=== PATIENT | male | born 1970 | race Two or more races ===

== ENCOUNTER 2020-08-12 07:57 | Inpatient (IN) | payer OTHER ==
[2020-08-12 08:03] VITALS: BMI 20.1
[2020-08-12] MEDS ORDERED: SODIUM CHLORIDE 1,000 ML IV STA (09:22)
[2020-08-12] MEDS ORDERED: LORazepam 2 MG/ML SDV VIAL IVPUSH ONE ×5 (09:22→19:04)
[2020-08-12] MEDS ORDERED: LORazepam 2 MG/ML SDV VIAL ONE ×5 (09:37→17:04)
[2020-08-12] MEDS ORDERED: ACETAMINOPHEN 1000 MG/100 ML VIAL (NON FORMULARY) IVPB ONE (09:40)
[2020-08-12 10:05] LABS: BASO % 1.1 % (0-2.0); EOS % 0.3 % (0-4.5); HEMATOCRIT 42.1 % (35.4-49); LYMPH % 20.1 % (8-40); MCHC 35.7 g/dl (32.0-35.9); MEAN CELL VOLUME 92.4 fl (80-96); MEAN PLT VOLUME 7.4 fl (7.5-11.1); MONO % 10.5 % (3.8-10.2); PLATELET COUNT 148 K/MM3 (134-434); RBC 4.55 M/mm3 (4.00-5.60); RDW 17.5 % (11.9-15.9); WHITE BLOOD COUNT 4.6 K/mm3 (4.0-10.0)
[2020-08-12 10:11] LABS: CHLORIDE 97 mmol/L (98-107); SODIUM 135 mmol/L (136-145)
[2020-08-12 10:14] LABS: CALCIUM 8.7 mg/dL (8.5-10.1); GLUCOSE,RANDOM 245 mg/dL (74-106); INR 1.03 (0.83-1.09); PROTHROMBIN TIME (PATIENT) 12.4 SEC (9.7-13.0)
[2020-08-12 10:15] LABS: ALBUMIN 3.6 g/dl (3.4-5.0); ANION GAP 13 MMOL/L (8-16); CO2 25 mmol/L (21-32); MAGNESIUM 1.8 mg/dL (1.8-2.4)
[2020-08-12 10:16] LABS: ACTIVATED PTT 30.8 SECONDS (25.2-36.5); LIPASE 549 U/L (73-393)
[2020-08-12 10:17] LABS: CREATININE 0.5 mg/dL (0.55-1.3); SGOT/AST 227 U/L (15-37); SGPT/ALT 253 U/L (13-61)
[2020-08-12 10:19] LABS: BILIRUBIN,TOTAL 1.5 mg/dL (0.2-1); TOT PROT 7.7 g/dl (6.4-8.2)
[2020-08-12 10:20] LABS: ALK PHOS 160 U/L (45-117)
[2020-08-12 11:04] LABS: BLOOD UREA NITROGEN 2.2 mg/dL (7-18)
[2020-08-12 12:03] LABS: ALBUMIN 3.2 g/dl (3.4-5.0); CALCIUM 8.2 mg/dL (8.5-10.1); MAGNESIUM 1.6 mg/dL (1.8-2.4)
[2020-08-12 12:05] LABS: PHOSPHOROUS 2.8 mg/dL (2.5-4.9)
[2020-08-12] MEDS ORDERED: MAGNESIUM SULF 50% (8.12 MEQ/2 ML-1 GM VIAL) IVPB ONE (12:05)
[2020-08-12 12:06] LABS: BILIRUBIN,DIRECT 0.8 mg/dL (0.0-0.2); CREATININE 0.5 mg/dL (0.55-1.3)
[2020-08-12 12:07] LABS: BILIRUBIN,TOTAL 1.4 mg/dL (0.2-1); TOT PROT 6.9 g/dl (6.4-8.2)
[2020-08-12] MEDS ORDERED: MAGNESIUM 1GM/D5W - 1 GM/100 ML IVPB IVPB ONE (12:08)
[2020-08-12 12:14] LABS: EPI CELLS 0 /uL (0-25.1); HYALINE CASTS 0 /uL (0-3.1); PH,URINE 6.5 (5.0-8.0); URINE APPEARANCE CLEAR; URINE BACTERIA 9 /uL (0-1359); URINE BILIRUBIN NEGATIVE (NEGATIVE); URINE COLOR YELLOW; URINE GLUCOSE (UA) 3+ (NEGATIVE); URINE KETONE TRACE (NEGATIVE); URINE LEUK ESTERASE NEGATIVE (NEGATIVE); URINE NITRITE NEGATIVE (NEGATIVE); URINE PROTEIN NEGATIVE (NEGATIVE); URINE RBC 2 /uL (0-23.9); URINE UROBILINOGEN 0.2 mg/dL (0.2-1.0); URINE WBC 1 /uL (0-25.8)
[2020-08-12] MEDS ORDERED: KETOROLAC TROMETHAMINE 15 MG/ML VIAL IVPUSH ONE (13:45)
[2020-08-12] MEDS ORDERED: KETOROLAC TROMETHAMINE 15 MG/ML VIAL ONE (13:47)
[2020-08-12] MEDS ORDERED: FOLIC ACID INJECTION - 1 MG, THIAMINE HCL 100 MG, MULTIVIT INJECTION ADULT 10 ML in SOD... IVPB ONE (14:37)
[2020-08-12] MEDS ORDERED: LORazepam 1 MG TABLET PO PRN (16:27)
[2020-08-12] MEDS ORDERED: SODIUM CHLORIDE 1,000 ML IV SCH (16:30)
[2020-08-12] MEDS ORDERED: THIAMINE HCL 200 MG/2 ML VIAL ONE (17:04)
[2020-08-12] MEDS: LORazepam 1 MG TABLET PO SCH ×3 (17:09→23:20)
[2020-08-12] MEDS: THIAMINE HCL 200 MG/2 ML VIAL IVPB SCH (17:09)
[2020-08-12] MEDS ORDERED: PANTOPRAZOLE SODIUM 40 MG VIAL ONE (18:23)
[2020-08-12] MEDS: PANTOPRAZOLE SODIUM 40 MG VIAL IVPUSH SCH (18:23)
[2020-08-12 18:24] LABS: URINE BARBITURATES NEGATIVE ng/ml (CUTOFF=200); URINE BENZODIAZEPINES NEGATIVE ng/ml (CUTOFF=200)
[2020-08-12 18:25] LABS: COCAINE, UR NEGATIVE ng/ml (CUTOFF=300); METHADONE, UR NEGATIVE ng/ml (CUTOFF=300); OPIATES, URI NEGATIVE ng/ml (CUTOFF=300); PHENCYCLIDINE,URINE NEGATIVE ng/ml (CUTOFF=25)
[2020-08-12 18:34] LABS: URINE AMPHETAMINES NEGATIVE ng/ml (CUTOFF=500)
[2020-08-12] MEDS ORDERED: LORazepam 2 MG/ML SDV VIAL IVPUSH PRN (19:04)
[2020-08-12] MEDS ORDERED: RAPID SEQUENCE INTUBATION KIT NR ONE (19:20)
[2020-08-12] MEDS ORDERED: diazePAM CARPU-JECT 10 MG/2 ML DISP.SYRIN IVPUSH ONE (19:23)
[2020-08-12] MEDS ORDERED: diazePAM CARPU-JECT 10 MG/2 ML DISP.SYRIN ONE (19:23)
[2020-08-12] MEDS ORDERED: LACTULOSE 20 GM/30 ML UDC (FOR RECTAL USE ONLY) PR ONE (19:25)
[2020-08-12] MEDS ORDERED: LACTULOSE 20 GM/30 ML UDC (FOR ORAL USE ONLY) PO ONE (19:25)
[2020-08-12] MEDS ORDERED: MIDAZOLAM HCL 2 MG/2 ML SINGLE DOSE VIAL ONE ×2 (19:32→21:47)
[2020-08-12] MEDS ORDERED: PROPOFOL 1,000,000 MCG/100 ML VIAL ONE (19:34)
[2020-08-12] MEDS ORDERED: ROCURONIUM BROMIDE 100 MG/10 ML VIAL ONE (19:48)
[2020-08-12] MEDS ORDERED: ROCURONIUM BROMIDE 50 MG/5 ML VIAL IV ONE ×3 (21:13→23:56)
[2020-08-12] MEDS ORDERED: ETOMIDATE 40 MG/20 ML VIAL IVPUSH ONE (21:13)
[2020-08-12] MEDS ORDERED: PROPOFOL 1,000,000 MCG/100 ML VIAL IVPB SCH (21:45)
[2020-08-12] MEDS ORDERED: MIDAZOLAM HCL 5 MG/1 ML Single Dose Vial IVPUSH ONE (21:47)
[2020-08-12] MEDS ORDERED: MIDAZOLAM 100 MG/100 ML MG IVPB ONE (21:58)
[2020-08-12] MEDS ORDERED: MIDAZOLAM IN 0.9 % SOD.CHLORID 100 MG/100 ML PLAST..BAG IVPB SCH (22:00)
[2020-08-12] MEDS: INSULIN SLIDING SCALE (NOVOLOG) 1 VIAL SQ SCH (22:13)
[2020-08-12] MEDS ORDERED: fentaNYL CITRATE 250 MCG/5 ML VIAL ONE (23:05)
[2020-08-12] MEDS: FENTANYL IVPB 500 MCG/100 ML BAG IVPB SCH (23:19)
[2020-08-12] MEDS ORDERED: PHENobarbital SODIUM 65 MG/1 ML VIAL IVPUSH ONE ×2 (23:36→23:51)
[2020-08-12] MEDS ORDERED: VECURONIUM BROMIDE 100 MG/100 ML BAG IVPB SCH (23:45)
[2020-08-13 06:36] LABS: BASO % 0.5 % (0-2.0); EOS % 0.1 % (0-4.5); HEMATOCRIT 38.1 % (35.4-49); HEMOGLOBIN 13.3 GM/dL (11.7-16.9); LYMPH % 7.5 % (8-40); MCH 32.9 pg (25.7-33.7); MCHC 34.8 g/dl (32.0-35.9); MEAN CELL VOLUME 94.5 fl (80-96); MEAN PLT VOLUME 7.2 fl (7.5-11.1); MONO % 9.4 % (3.8-10.2); NEUT % 82.5 % (42.8-82.8); PLATELET COUNT 120 K/MM3 (134-434); RBC 4.03 M/mm3 (4.00-5.60); RDW 17.4 % (11.9-15.9)
[2020-08-13 07:09] LABS: CALCIUM 7.7 mg/dL (8.5-10.1)
[2020-08-13 07:10] LABS: BLOOD UREA NITROGEN 7.9 mg/dL (7-18); MAGNESIUM 1.7 mg/dL (1.8-2.4)
[2020-08-13 07:12] LABS: CREATININE 0.6 mg/dL (0.55-1.3)
[2020-08-13 07:13] LABS: BILIRUBIN,TOTAL 2.5 mg/dL (0.2-1); PHOSPHOROUS 3.1 mg/dL (2.5-4.9); TOT PROT 6.7 g/dl (6.4-8.2)
[2020-08-13] MEDS ORDERED: MIDAZOLAM 100 MG/100 ML MG IVPB ONE (07:47)
[2020-08-13] MEDS ORDERED: FENTANYL NS IVPB 500 MCG/100 ML BAG IVPB ONE (07:47)
[2020-08-13] MEDS ORDERED: PROPOFOL 1,000,000 MCG/100 ML VIAL ONE (07:47)
[2020-08-13] MEDS: FENTANYL IVPB 500 MCG/100 ML BAG IVPB SCH (08:24)
[2020-08-13] MEDS: LORazepam 1 MG TABLET PO SCH ×4 (08:25→23:19)
[2020-08-13 10:06] LABS: SARS-CoV-2 NAA Not Detected (Not Detected)
[2020-08-13] MEDS: INSULIN SLIDING SCALE (NOVOLOG) 1 VIAL SQ SCH ×4 (10:59→21:33)
[2020-08-13] MEDS ORDERED: INSULIN SLIDING SCALE (NOVOLOG) 1 VIAL SQ ONE (11:01)
[2020-08-13] MEDS: MULTIVITAMINS (DAILY MVI) TABLET (FP) PO SCH (11:13)
[2020-08-13] MEDS: FOLIC ACID 1 MG TABLET (FP) PO SCH (11:14)
[2020-08-13] MEDS: ENOXAPARIN NA (PORCINE) 40 MG/0.4 ML DISP.SYRIN SQ SCH (11:17)
[2020-08-13] MEDS ORDERED: PANTOPRAZOLE SODIUM 40 MG/100 ML BAG IVPB ONE (11:20)
[2020-08-13] MEDS: PANTOPRAZOLE SODIUM 40 MG VIAL IVPUSH SCH (11:23)
[2020-08-13] MEDS ORDERED: THIAMINE HCL 200 MG/2 ML VIAL ONE (11:26)
[2020-08-13] MEDS: THIAMINE HCL 200 MG/2 ML VIAL IVPB SCH (11:29)
[2020-08-13] MEDS: LACTATED RINGERS SOLUTION 1,000 ML/1,000 ML INFUS.BAG IV SCH (14:30)
[2020-08-13] MEDS ORDERED: KCL 10 MEQ IVPB 10 MEQ/100 ML INFUS.BAG IVPB SCH (15:30)
[2020-08-13] MEDS ORDERED: KCL 10 MEQ IVPB 10 MEQ/100 ML INFUS.BAG IVPB ONE (17:46)
[2020-08-13] MEDS ORDERED: LORazepam 0.5 MG TABLET ONE (17:48)
[2020-08-13] MEDS: KCL 10 MEQ IVPB 10 MEQ/100 ML INFUS.BAG IVPB SCH ×3 (19:00→21:34)
[2020-08-14] MEDS: LORazepam 1 MG TABLET PO SCH ×4 (05:38→22:24)
[2020-08-14] MEDS: INSULIN SLIDING SCALE (NOVOLOG) 1 VIAL SQ SCH ×4 (06:25→21:06)
[2020-08-14 07:46] LABS: BASO % 0.2 % (0-2.0); EOS % 0.2 % (0-4.5); HEMATOCRIT 39.8 % (35.4-49); MCH 33.3 pg (25.7-33.7); MCHC 35.1 g/dl (32.0-35.9); MEAN CELL VOLUME 94.8 fl (80-96); MEAN PLT VOLUME 7.5 fl (7.5-11.1); MONO % 6.4 % (3.8-10.2); NEUT % 86.2 % (42.8-82.8); PLATELET COUNT 107 K/MM3 (134-434); RDW 16.9 % (11.9-15.9); WHITE BLOOD COUNT 10.1 K/mm3 (4.0-10.0)
[2020-08-14 08:06] LABS: BLOOD UREA NITROGEN 9.6 mg/dL (7-18); CALCIUM 7.9 mg/dL (8.5-10.1)
[2020-08-14 08:07] LABS: ALBUMIN 2.8 g/dl (3.4-5.0); MAGNESIUM 1.6 mg/dL (1.8-2.4)
[2020-08-14 08:09] LABS: CREATININE 0.4 mg/dL (0.55-1.3)
[2020-08-14 08:10] LABS: BILIRUBIN,TOTAL 2.7 mg/dL (0.2-1)
[2020-08-14 08:11] LABS: TOT PROT 6.2 g/dl (6.4-8.2)
[2020-08-14] MEDS: THIAMINE HCL 200 MG/2 ML VIAL IVPB SCH (09:23)
[2020-08-14] MEDS: PANTOPRAZOLE SODIUM 40 MG VIAL IVPUSH SCH (09:24)
[2020-08-14] MEDS: MULTIVITAMINS (DAILY MVI) TABLET (FP) PO SCH (09:24)
[2020-08-14] MEDS: FOLIC ACID 1 MG TABLET (FP) PO SCH (09:24)
[2020-08-14] MEDS: ENOXAPARIN NA (PORCINE) 40 MG/0.4 ML DISP.SYRIN SQ SCH (09:24)
[2020-08-14] MEDS ORDERED: MAGNESIUM SULF 50% (8.12 MEQ/2 ML-1 GM VIAL) IVPB ONE (10:43)
[2020-08-14] MEDS ORDERED: POTASSIUM CHLORIDE TABS 20 MEQ TABLET.ER (FP) PO ONE (10:43)
[2020-08-14] MEDS: LACTATED RINGERS SOLUTION 1,000 ML/1,000 ML INFUS.BAG IV SCH (15:05)
[2020-08-15] MEDS ORDERED: LORazepam 0.5 MG TABLET PO PRN
[2020-08-15] MEDS: LORazepam 0.5 MG TABLET PO SCH ×4 (05:35→23:32)
[2020-08-15] MEDS: INSULIN SLIDING SCALE (NOVOLOG) 1 VIAL SQ SCH ×4 (06:18→21:11)
[2020-08-15 08:16] LABS: HEMATOCRIT 37.8 % (35.4-49); HEMOGLOBIN 13.5 GM/dL (11.7-16.9); MCH 33.6 pg (25.7-33.7); MCHC 35.7 g/dl (32.0-35.9); MEAN CELL VOLUME 94.3 fl (80-96); MEAN PLT VOLUME 7.5 fl (7.5-11.1); PLATELET COUNT 127 K/MM3 (134-434); RBC 4.01 M/mm3 (4.00-5.60); RDW 16.3 % (11.9-15.9); WHITE BLOOD COUNT 11.2 K/mm3 (4.0-10.0)
[2020-08-15 08:27] LABS: ALBUMIN 2.5 g/dl (3.4-5.0); BLOOD UREA NITROGEN 9.8 mg/dL (7-18); CALCIUM 7.8 mg/dL (8.5-10.1)
[2020-08-15 08:28] LABS: MAGNESIUM 1.8 mg/dL (1.8-2.4)
[2020-08-15 08:30] LABS: CREATININE 0.4 mg/dL (0.55-1.3)
[2020-08-15 08:31] LABS: PHOSPHOROUS 1.9 mg/dL (2.5-4.9)
[2020-08-15 08:32] LABS: BILIRUBIN,TOTAL 3.5 mg/dL (0.2-1); TOT PROT 5.8 g/dl (6.4-8.2)
[2020-08-15] MEDS ORDERED: NAPH,MB-DB/K PH,MBDB POWDER PACKET PO ONE (08:42)
[2020-08-15] MEDS ORDERED: POTASSIUM CHLORIDE TABS 20 MEQ TABLET.ER (FP) PO ONE (08:43)
[2020-08-15] MEDS ORDERED: MAGNESIUM SULF 50% (8.12 MEQ/2 ML-1 GM VIAL) IVPB ONE (08:43)
[2020-08-15] MEDS: PANTOPRAZOLE SODIUM 40 MG VIAL IVPUSH SCH (09:10)
[2020-08-15] MEDS: ENOXAPARIN NA (PORCINE) 40 MG/0.4 ML DISP.SYRIN SQ SCH (09:10)
[2020-08-15] MEDS: FOLIC ACID 1 MG TABLET (FP) PO SCH (09:10)
[2020-08-15] MEDS: MULTIVITAMINS (DAILY MVI) TABLET (FP) PO SCH (09:11)
[2020-08-15] MEDS: THIAMINE HCL 200 MG/2 ML VIAL IVPB SCH (09:11)
[2020-08-15] MEDS: LACTATED RINGERS SOLUTION 1,000 ML/1,000 ML INFUS.BAG IV SCH ×2 (12:53→14:53)
[2020-08-15] MEDS: NAPH,MB-DB/K PH,MBDB POWDER PACKET PO SCH ×2 (13:53→21:12)
[2020-08-16] MEDS ORDERED: LORazepam 0.5 MG TABLET PO ONE (05:00)
[2020-08-16] MEDS: NAPH,MB-DB/K PH,MBDB POWDER PACKET PO SCH ×2 (06:10→14:36)
[2020-08-16] MEDS: INSULIN SLIDING SCALE (NOVOLOG) 1 VIAL SQ SCH ×2 (06:10→10:55)
[2020-08-16 08:12] LABS: HEMOGLOBIN 13.3 GM/dL (11.7-16.9); MCH 34.3 pg (25.7-33.7); MCHC 35.9 g/dl (32.0-35.9); MEAN CELL VOLUME 95.4 fl (80-96); MEAN PLT VOLUME 7.3 fl (7.5-11.1); PLATELET COUNT 158 K/MM3 (134-434); RBC 3.88 M/mm3 (4.00-5.60); RDW 16.3 % (11.9-15.9); WHITE BLOOD COUNT 6.9 K/mm3 (4.0-10.0)
[2020-08-16 08:38] LABS: ALBUMIN 2.6 g/dl (3.4-5.0); CALCIUM 8.1 mg/dL (8.5-10.1)
[2020-08-16 08:39] LABS: BLOOD UREA NITROGEN 7.3 mg/dL (7-18)
[2020-08-16 08:42] LABS: CREATININE 0.5 mg/dL (0.55-1.3); MAGNESIUM 1.6 mg/dL (1.8-2.4)
[2020-08-16 08:49] LABS: BILIRUBIN,TOTAL 3.2 mg/dL (0.2-1)
[2020-08-16] MEDS: ENOXAPARIN NA (PORCINE) 40 MG/0.4 ML DISP.SYRIN SQ SCH (09:20)
[2020-08-16] MEDS: PANTOPRAZOLE SODIUM 40 MG VIAL IVPUSH SCH (09:20)
[2020-08-16] MEDS: MULTIVITAMINS (DAILY MVI) TABLET (FP) PO SCH (09:20)
[2020-08-16] MEDS: FOLIC ACID 1 MG TABLET (FP) PO SCH (09:20)
[2020-08-16] MEDS: THIAMINE HCL 200 MG/2 ML VIAL IVPB SCH (09:40)
[2020-08-16] MEDS ORDERED: CYANOCOBALAMIN 1,000 MCG TABLET (FP) PO SCH (11:45)
[2020-08-16 15:30] VITALS: BP 125/79; PULSE 67; TEMP 98.3
== END 2020-08-16 16:56 | disposition home or self-care (01) | DRG 775 ==
LOC: JER 07:57 → JERBED 14:55 → J4W 08-13 18:49
PROVIDERS: ATTEND Internal Medicine
PROC: 5A1945Z Respiratory Ventilation, 24-96 Consecutive Hours (ICD-10-PCS; principal; 2020-08-12)
PROC: 0CHY7BZ Insertion of Airway into Mouth and Throat, Via Natural or Artificial Opening (ICD-10-PCS; 2020-08-12)
PROC: HZ2ZZZZ Detoxification Services for Substance Abuse Treatment (ICD-10-PCS; 2020-08-12)
DX: F10.231 Alcohol dependence with withdrawal delirium (principal); G92 Toxic encephalopathy; J96.00 Acute respiratory failure, unspecified whether with hypoxia or hypercapnia; J98.11 Atelectasis; M62.82 Rhabdomyolysis; G40.89 Other seizures; F10.221 Alcohol dependence with intoxication delirium; K76.0 Fatty (change of) liver, not elsewhere classified; S01.01XA Laceration without foreign body of scalp, initial encounter; R74.01 Elevation of levels of liver transaminase levels; E83.42 Hypomagnesemia; E87.6 Hypokalemia; K70.10 Alcoholic hepatitis without ascites; R26.81 Unsteadiness on feet; W19.XXXA Unspecified fall, initial encounter; Y93.9 Activity, unspecified; Y92.89 Other specified places as the place of occurrence of the external cause; Y99.9 Unspecified external cause status
CPT/HCPCS: 36415; 70450-TC; 71045-TC-FY; 71046-TC-FY; 71260-TC; 72125-TC; 72128-TC; 72131-TC; 74177-TC; 76705-TC; 80053; 80074; 80184; 80307; 81003; 82140; 82248; 82550; 82553; 82607; 82746; 82962; 83036; 83690; 83735; 84100; 84484; 85025; 85027; 85610; 85730; 93005; 93010; 93970-TC; 94002; 97116-GP; 97162-GP; 99285-25; C9803; J0131; Q9967; U0003; U0005

== ENCOUNTER 2020-09-09 09:18 | Emergency (ER) | payer OTHER ==
[2020-09-09 09:35] VITALS: BP 125/78; PULSE 89; TEMP 98.1; BMI 52.0
[2020-09-09] MEDS ORDERED: SILVER SULFADIAZINE 1% TOP CREAM 50 GM JAR TP ONE (10:28)
== END 2020-09-09 10:25 | disposition home or self-care (01) ==
LOC: JER 09:18
DX: T25.222A Burn of second degree of left foot, initial encounter (principal)
CPT/HCPCS: 99284-25

== ENCOUNTER 2024-04-26 17:58 | Inpatient (IN) | payer OTHER ==
[2024-04-26 18:12] VITALS: BMI 26.1
[2024-04-26] MEDS ORDERED: MAG HYDROX/AL HYDROX/SIMETH 30 ML UNIT-DOSE CUP ONE (19:45)
[2024-04-26] MEDS ORDERED: ONDANSETRON 4 MG/2 ML VIAL ONE (19:46)
[2024-04-26] MEDS ORDERED: FAMOTIDINE 20 MG/50 ML IVPB 20 MG/50 ML MG IVPB ONE (19:46)
[2024-04-26 19:49] LABS: BASO % 0.3 % (0-2.0); HEMATOCRIT 43.4 % (35.4-49); HEMOGLOBIN 13.8 GM/dL (11.7-16.9); LYMPH % 11.4 % (8-40); MCH 24.5 pg (25.7-33.7); MCHC 31.8 g/dl (32.0-35.9); MEAN CELL VOLUME 77.2 fl (80-96); NEUT % 82.3 % (42.8-82.8); PLATELET COUNT 202 10^3/uL (134-434); RBC 5.63 M/mm3 (4.00-5.60); RDW 19.1 % (11.9-15.9); WHITE BLOOD COUNT 8.5 K/mm3 (4.0-10.0)
[2024-04-26] MEDS: SODIUM CHLORIDE 1,000 ML IV STA (20:00)
[2024-04-26] MEDS: ONDANSETRON 4 MG/2 ML VIAL IVPUSH ONE (20:00)
[2024-04-26] MEDS: MAG HYDROX/AL HYDROX/SIMETH -MYLANTA- ORAL SUSPENSION PO ONE (20:00)
[2024-04-26] MEDS: FAMOTIDINE 20 MG/50 ML IVPB 20 MG/50 ML MG IVPB ONE (20:00)
[2024-04-26 20:06] LABS: CHLORIDE 110 mmol/L (98-107); POTASSIUM 4.1 mmol/L (3.5-5.1); SODIUM 140 mmol/L (136-145)
[2024-04-26 20:08] LABS: ALBUMIN 3.5 g/dl (3.4-5.0); ANION GAP 8 mmol/L (4-13); CALCIUM 9.3 mg/dL (8.5-10.1); CO2 23 mmol/L (21-32)
[2024-04-26 20:09] LABS: GLUCOSE,RANDOM 304 mg/dL (74-106)
[2024-04-26 20:11] LABS: SGOT/AST 33 U/L (15-37); SGPT/ALT 39 U/L (13-61)
[2024-04-26 20:12] LABS: CREATININE 0.7 mg/dL (0.55-1.3)
[2024-04-26 20:13] LABS: BILIRUBIN,TOTAL 0.4 mg/dL (0.2-1); TOT PROT 7.4 g/dl (6.4-8.2)
[2024-04-26 20:14] LABS: ALK PHOS 136 U/L (45-117)
[2024-04-26 21:03] LABS: HIV INTERPRETATION NEGATIVE (NEGATIVE)
[2024-04-26] MEDS ORDERED: KETOROLAC TROMETHAMINE 30 MG/1 ML VIAL ONE (21:10)
[2024-04-26] MEDS: KETOROLAC TROMETHAMINE 30 MG/1 ML VIAL IVPUSH ONE (21:14)
[2024-04-26] MEDS ORDERED: MECLIZINE HCL 25 MG TABLET (FP) ONE (21:16)
[2024-04-26] MEDS: MECLIZINE HCL 25 MG TABLET (FP) PO ONE (21:22)
[2024-04-27] MEDS ORDERED: ONDANSETRON 4 MG/2 ML VIAL IVPUSH PRN (01:30)
[2024-04-27] MEDS ORDERED: INSULIN ASPART SLIDING SCALE (NOVOLOG) 1 VIAL SQ ONE (02:33)
[2024-04-27] MEDS ORDERED: ACETAMINOPHEN 1000 MG/100 ML BAG IVPB PRN (02:35)
[2024-04-27] MEDS: INSULIN ASPART SLIDING SCALE (NOVOLOG) 1 VIAL SQ SCH (02:37)
[2024-04-27] MEDS ORDERED: LORazepam 2 MG/ML SDV VIAL IVPUSH PRN (02:51)
[2024-04-27 04:27] VITALS: RESP 18
[2024-04-27] MEDS: SODIUM CHLORIDE 1,000 ML IV SCH (05:56)
[2024-04-27 08:53] LABS: HEMATOCRIT 41.5 % (35.4-49); HEMOGLOBIN 13.1 GM/dL (11.7-16.9); MCH 24.9 pg (25.7-33.7); MCHC 31.7 g/dl (32.0-35.9); MEAN CELL VOLUME 78.5 fl (80-96); MEAN PLT VOLUME 6.9 fl (7.5-11.1); PLATELET COUNT 182 10^3/uL (134-434); RBC 5.28 M/mm3 (4.00-5.60); RDW 18.7 % (11.9-15.9); WHITE BLOOD COUNT 6.3 K/mm3 (4.0-10.0)
[2024-04-27 09:11] LABS: POTASSIUM 3.5 mmol/L (3.5-5.1)
[2024-04-27 09:17] LABS: CALCIUM 8.6 mg/dL (8.5-10.1)
[2024-04-27 09:18] LABS: BLOOD UREA NITROGEN 13.9 mg/dL (7-18)
[2024-04-27 09:21] LABS: CREATININE 0.6 mg/dL (0.55-1.3); PHOSPHOROUS 3.1 mg/dL (2.5-4.9)
[2024-04-27 09:23] LABS: TOT PROT 6.3 g/dl (6.4-8.2)
[2024-04-27] MEDS: MECLIZINE HCL 25 MG TABLET (FP) PO SCH (10:09)
[2024-04-27] MEDS: THIAMINE 100 MG TABLET PO SCH (10:09)
[2024-04-27] MEDS: FOLIC ACID 1 MG TABLET (FP) PO SCH (10:09)
[2024-04-27] MEDS: PANTOPRAZOLE SODIUM 40 MG VIAL IVPUSH SCH (10:09)
[2024-04-27 10:18] LABS: EPI CELLS 12 /uL (0-25.1); HYALINE CASTS 1 /uL (0-3.1); URINE APPEARANCE CLEAR; URINE BACTERIA 136 /uL (0-1359); URINE BILIRUBIN NEGATIVE (NEGATIVE); URINE COLOR YELLOW; URINE GLUCOSE (UA) 1+ (NEGATIVE); URINE KETONE 3+ (NEGATIVE); URINE LEUK ESTERASE NEGATIVE (NEGATIVE); URINE NITRITE NEGATIVE (NEGATIVE); URINE PROTEIN 2+ (NEGATIVE); URINE RBC 18 /uL (0-23.9); URINE WBC 15 /uL (0-25.8)
[2024-04-27 15:04] VITALS: BP 125/74; TEMP 98.3
[2024-04-27 15:09] VITALS: PULSE 79
[2024-04-27] MEDS: ACETAMINOPHEN 325 MG TABLET (FP) PO ONE (17:53)
== END 2024-04-27 18:49 | disposition home or self-care (01) | DRG 111 ==
LOC: JER 17:58 → JERBED 04-27 01:23 → OBSVTOIN 04-27 01:25 → J6S 04-27 03:45
PROVIDERS: ADMIT Internal Medicine; ATTEND Internal Medicine
DX: H81.10 Benign paroxysmal vertigo, unspecified ear (principal); E11.65 Type 2 diabetes mellitus with hyperglycemia; I10 Essential (primary) hypertension; F10.10 Alcohol abuse, uncomplicated; R11.2 Nausea with vomiting, unspecified; R45.1 Restlessness and agitation; R63.0 Anorexia
CPT/HCPCS: 0241U-QW; 36415; 70450-TC; 70551-TC; 80053; 80307; 81003; 82962; 83036; 83690; 83735; 84100; 84484; 85025; 85027; 86803; 87086; 87389; 93005; 93010; 99285-25; G0378